=== PATIENT | male | born 1975 | race Caucasian/White ===

== ENCOUNTER 2021-04-02 12:49 | Emergency (ER) | payer SELFPAY ==
[2021-04-02 13:35] VITALS: BP 182/122; PULSE 95; RESP 22; TEMP 37.8; O2SAT 100; BMI 26.1
[2021-04-02 14:35] VITALS: BP 182/122; PULSE 95; RESP 18; TEMP 37.8
--- NOTE | 2021-04-02 14:51 | HMH.EDUTC ---
[facility] [place] Disposition Clinical Impression: Viral syndrome, Exposure to COVID-19 virus Disposition: Home, Self-Care Condition on Discharge: Good Instructions: DI for Viral Syndrome, DI for COVID-19 (Suspected or Confirmed ), Preventing the Spread of Coronavirus Discharge Instructions Additional Instructions: Drink plenty of fluids. Take tylenol for pain or fever. Return if you begin to have difficulty breathing. Follow up with your regular doctor. GO TO THE ER FOR ANY WORSENING SYMPTOMS Quarantine until you know the results of your covid-19 test. If it is positive, the health department should call you and give you further instructions about your length of Quarantine and other things. Notify your school or workplace of your results and follow their instructions regarding return to work/school. Prescriptions: Benzonatate [Tessalon Perle 100mg Cap] 100 mg PO TIDP PRN #30 cap PRN Reason: Cough Transmission Status: Received by [id number] Ondansetron [Zofran 4mg ODT] 4 mg PO DAILYP PRN #12 tab PRN Reason: Nausea Transmission Status: Received by [id number] Referrals: Provider,Referral, [Primary Care Provider] - Forms: Work/School Release Time of Disposition: 14:54 Medical Decision Making - Medical Records Medical records reviewed: No: I reviewed the patient's medical records. - Vitor Inquiry Pt receiving controlled substance: No Vital Signs: 04/02/21 13:35 04/02/21 14:35 Temperature 100.1 F H 100.1 F H Temperature Source Oral Pulse Rate 95 H Pulse Rate [Left] 95 H Respiratory Rate 22 18 Blood Pressure 182/122 H Blood Pressure [Right Arm] 182/122 H Blood Pressure Mean [Right Arm] 142 02 Sat by Pulse Oximetry 100 [facility] [place] HPI - General Stated complaint: covid exposure w/symptoms Time Seen by Provider: 04/02/21 14:51 Mode of Arrival: Ambulatory Source of Information: Patient Limitations: No Limitations Description of Symptoms (Recalled from Triage Doc. by RN): pt was exposed to covid on 03/25. pt c/o weakness, RODRIGEZ, cough, sneezing, gagging on flem, and lethargy. HEENT Symptoms (Recalled from RN notes): Yes (congestion, drainage, and RODRIGEZ) Resp Symptoms (Recalled from RN notes): Yes (cough) Skin Symptoms (Recalled from RN notes): No MS Symptoms (Recalled from RN notes): No Functional Status (Recalled from RN notes): lethargy and weakness - History of Present Illness Provider Complaint: he has felt bad since yesterday. He has fatigue, malaise, sore throat, and body aches. He has been vaccinated against covid-19. - Related Data Previous Rx's Medication Instructions Recorded Benzonatate [Tessalon Perle 100mg 100 mg PO TIDP PRN #30 cap 04/02/21 Cap] Ondansetron [Zofran 4mg ODT] 4 mg PO DAILYP PRN #12 tab 04/02/21 Allergies Allergy/AdvReac Type Severity Reaction Status Date / Time No Known Allergies Allergy Verified 04/02/21 19:39 - Worker's Comp Is this a Worker's Comp case?: No H History - Hepatitis A Screen Drug use history?: No High risk sexual behaviors?: No History of sexually transmitted infection?: No Currently employed?: No Childcare worker?: No Do you have indoor plumbing?: Yes Do you have electricity?: Yes Attestation statement:: This patient has been screened for Hepatitis A risk factors. I have reviewed the patient's past medical history: Yes ROS Obtained: Yes All systems reviewed & no additional complaints - Constitutional Constitutional: Reports system reviewed and no additional complaints, except as docu - Eyes Eyes: Reports system reviewed and no additional complaints, except as docu - ENT Ears, Nose, Mouth, and Throat: Reports system reviewed and no additional complaints, except as docu - Cardiovascular Cardiovascular: Reports system reviewed and no additional complaints, except as docu - Respiratory Respiratory: Reports system reviewed and no additional complaints, except as docu Physical Exam
== END 2021-04-02 14:58 | disposition home or self-care (01) ==
PROVIDERS: Emergency Provider Nurse Practitioner Family
DX: U07.1 COVID-19 (principal); B34.9 Viral infection, unspecified
CPT/HCPCS: 99202; C9803; G0463; U0003; U0005